=== PATIENT | male | born 1955 | race Caucasian/White ===

== ENCOUNTER → 2018-01-22 | Outpatient (CLI) | payer OTHER ==
--- NOTE | 2018-01-22 14:10 | US ---
EXAMINATION TYPE: US thyroid st tissue head/neck DATE OF EXAM: 01/22/2018 COMPARISON: NONE CLINICAL HISTORY: Non toxic single thyroid nodule E04.1. Thyroid nodules GLAND SIZE: Right Lobe: 4.7 x 2.2 x 2.2 cm Overall Parenchyma: homogenous Left Lobe: 3.4 x 1.9 x 1.7 cm Overall Parenchyma: homogeneous Isthmus Thickness: 0.3 cm NODULES RIGHT: # of nodules measured on right: 2 1. 0.9 X 0.6 x 0.9 cm hypoechoic mixed nodule at the lower pole with poorly defined margins. This n odule is wider than tall and shows intranodular vascularity. Prior size: no previous 2. 0.5 X 0.4 x 0.5 cm echogenic nodule at the mid pole with well-defined margins. This nodule is wid er than tall and shows no intranodular vascularity. Prior size: no previous LEFT: # of nodules measured on left: 1 1. 0.8 X 0.5 x 0.7 cm hypoechoic solid nodule at the mid pole with well-defined margins. This nodul e is wider than tall and shows intranodular vascularity. Prior size: no previous ISTHMUS: # of nodules measured in the isthmus: 0 Bilateral neck scanned, no evidence of lymphadenopathy. IMPRESSION: 1. Bilateral subcentimeter nodules.
== END ==
LOC: RADUSWWP 12:50
DX: E04.1 Nontoxic single thyroid nodule (principal)
CPT/HCPCS: 76536

== ENCOUNTER → 2018-04-07 | Outpatient (CLI) | payer OTHER ==
--- NOTE | 2018-04-07 15:19 | CONS ---
CONSULTATION DATE OF SERVICE: 04/07/2018 A 62-year-old gentleman who has been evaluated in the [facility] for possible obstructive sleep apnea-hypopnea syndrome. Patient usual sleep schedule from 10 to 1 a.m. until 6 - 7 a.m. and sometimes he gets up at more than 10 am. No problems with falling asleep. No TV in bedroom. Presently, he sleeps by himself. According to his family, he snores loudly and wakes up from sleep 2 times with nocturia. No history of hypnagogic hallucinations, sleep paralysis or cataplexy. During the day, patient may feel sleepy. [place] Sleepiness Scale is 8. He takes naps up to 2 times a day and feels refreshed after naps. PAST MEDICAL HISTORY: Positive for neck arthritis. PAST SURGICAL HISTORY: Had hernia repair, tonsillectomy. MEDICATION: Naproxen. SOCIAL HISTORY: Negative for smoking. Alcohol consumption very rarely. FAMILY HISTORY: Hypertension, arthritis, snoring, acid reflux, restless legs. REVIEW OF SYSTEMS: Awakenings from sleep, sleepiness during the day, snoring. PHYSICAL EXAM: gentleman without distress. BP 124/83, HR 81, RR 15, height 5 foot 11-1/2 inches, weight 226 pounds. Body mass index 31. Temperature 98.6. Oxygen saturation at room air 97%. OROPHARYNX: Low position of soft palate. Mallampati 4. Wide neck 17-1/2 inches in circumference. ABDOMEN: Slightly obese. EXTREMITIES No clubbing or cyanosis. MANAGEMENT TECHNICIAN Awake, alert, and oriented X3. Cranial nerves 2 to 7 intact. There is no fasciculation or atrophy. noted. No focal deficits observed. IMPRESSION: 1. Snoring. Low position of soft palate, wide neck, awakenings from sleep, sleepiness during the day. Patient takes 2 naps a day. Obstructive sleep apnea-hypopnea syndrome. 2. Mild obesity, body mass index 31. 3. Neck arthritis. 4. Status post surgical treatment for hiatal hernia. 5. Status post tonsillectomy. PLAN: 1. Polysomnography for evaluation of patient's breathing during sleep. 2. CPAP/BiPAP titration if sleep study confirms obstructive sleep apnea-hypopnea syndrome. 3. Preferable position during sleep on the side. 4. No driving if patient feels any sleepiness. 5. I will see patient for follow up visit to explain results of testing and following plan. Thank you very much for referring this patient for consultation. Sincerely, Amilcar Dumont MD, PhD, FAASM Diplomat of [employer] Settlement Clerk of [facility] [place] [facility]OD[facility] / [place]: [id number] /
== END ==
LOC: SLEEP 13:39
PROVIDERS: ATTEND Internal Medicine
DX: G47.33 Obstructive sleep apnea (adult) (pediatric) (principal); E66.9 Obesity, unspecified; M47.812 Spondylosis without myelopathy or radiculopathy, cervical region; Z90.89 Acquired absence of other organs; Z98.890 Other specified postprocedural states; Z68.31 Body mass index [BMI] 31.0-31.9, adult; Z99.89 Dependence on other enabling machines and devices; Z79.1 Long term (current) use of non-steroidal anti-inflammatories (NSAID)
CPT/HCPCS: 99211